=== PATIENT | female | born 1950 | race Caucasian/White ===

== ENCOUNTER 2025-02-02 15:29 | Inpatient (IN) | payer MEDICARE ==
[~2025-02-02] VITALS: Ht 162.6 cm; Wt 85.3 kg
[2025-02-02 15:32] VITALS: BP 103/56; TEMP 98.1
[2025-02-02 20:37] VITALS: BP 109/55; TEMP 98.5; O2SAT 95
[2025-02-02] MEDS ORDERED: REMEDY ESSENTIAL ZINC PASTE 113 GM TOP PRN (20:45)
[2025-02-02] MEDS ORDERED: METO100T14 PO (21:14)
[2025-02-02] MEDS ORDERED: INSU100V7 SQ (21:14)
[2025-02-02] MEDS ORDERED: METF-442 PO (21:14)
[2025-02-02] MEDS: OXYCODONE/APAP 5-325 MG TABLET PO PRN (23:07)
[2025-02-03 04:51] VITALS: BP 126/54; TEMP 98.1; O2SAT 93
[2025-02-03 07:49] VITALS: BP 130/59; TEMP 98.3; O2SAT 95
[2025-02-03] MEDS ORDERED: METO-358 PO (12:07)
[2025-02-03] MEDS ORDERED: AMLO-212 PO (12:08)
[2025-02-03] MEDS ORDERED: OLME1TAB90 PO (12:09)
[2025-02-03] MEDS ORDERED: INSU100V28 SQ (12:11)
[2025-02-03] MEDS ORDERED: ATOR10TA PO (12:12)
[2025-02-03] MEDS ORDERED: DEXTROSE 50% 50 ML DISP.SYRIN IV PRN (15:30)
[2025-02-03 15:52] VITALS: BP 126/74; TEMP 98.4; O2SAT 96
[2025-02-03] MEDS: BLOOD SUGAR DIAGNOSTIC 1 EACH STRIP VI SCH (16:26)
[2025-02-03] MEDS ORDERED: INSULIN REGULAR, HUMAN 1000 UNIT/10 ML VIAL SQ SCH (16:30)
[2025-02-03] MEDS: METFORMIN HCL 500 MG TABLET PO SCH (17:21)
[2025-02-03] MEDS: INSULIN REGULAR, HUMAN 1000 UNIT/10 ML VIAL SQ PRN (17:23)
[2025-02-03] MEDS ORDERED: METFORMIN HCL 850 MG TABLET PO SCH (18:00)
[2025-02-03] MEDS: ATORVASTATIN 10 MG TABLET PO SCH (21:07)
[2025-02-03] MEDS: INSULIN GLARGINE,HUM 300 UNITS/3 ML CARTRIDGE SQ SCH (21:09)
[2025-02-03 23:26] VITALS: BP 129/63; TEMP 97.8; O2SAT 95
[2025-02-04 06:28] VITALS: BP 134/58; TEMP 98.7; O2SAT 92
[2025-02-04 07:57] VITALS: BP 131/66; TEMP 98.4; O2SAT 95
[2025-02-04] MEDS: METOPROLOL SUCCINATE XL 50 MG TAB.SR.24H PO SCH (08:32)
[2025-02-04] MEDS: HCTZ PO SCH (08:33)
[2025-02-04] MEDS: AMLODIPINE 5 MG TABLET PO SCH (08:33)
[2025-02-04] MEDS: OLMESARTAN PO SCH (08:33)
[2025-02-04] MEDS ORDERED: Medication Not On Formulary EA (Olmesartan/Hydrochlorothiazide (Olmesartan-Hctz 40-12.5 PO SCH (09:00)
[2025-02-04 16:14] VITALS: BP 105/51; TEMP 98.2; O2SAT 95
[2025-02-04 20:11] LABS: PLATELET COUNT (AUTO) 225 K/uL (179-408); RED BLOOD CELL COUNT(AUTO) 2.66 MIL/uL (3.63-4.92); RED CELL DISTRIBUTION WIDTH 13.4 % (12.3-17.7); WHITE BLOOD COUNT (AUTO) 7.4 K/uL (3.8-11.8)
[2025-02-04 20:18] LABS: CREATININE 1.0 mg/dL (0.6-1.3); SODIUM SERUM 135 mmol/L (136-145); UREA NITROGEN, BLOOD 34 mg/dL (7-18)
[2025-02-04 21:27] VITALS: BP 111/53; TEMP 98.6; O2SAT 93
[2025-02-05 05:51] VITALS: BP 108/54; TEMP 98.1; O2SAT 95
[2025-02-05 08:00] VITALS: BP 125/63; TEMP 97.8; O2SAT 97
[2025-02-05 16:00] VITALS: BP 116/41; TEMP 97.7; O2SAT 98
[2025-02-05] MEDS ORDERED: PHENYLEPHRINE/SHARK LIVER/CCB 1 EACH SUPP.RECT RC ONE (19:30)
[2025-02-05] MEDS ORDERED: BISACODYL 10 MG SUPP.RECT RC PRN (20:15)
[2025-02-06 07:06] VITALS: BP 120/43; TEMP 97.3; O2SAT 98
[2025-02-06] MEDS: MAGNESIUM HYDROXIDE 30 ML LIQUID UDC PO PRN (12:03)
[2025-02-06] MEDS ORDERED: ONDANSETRON 4 MG/2 ML VIAL IV PRN (14:15)
[2025-02-06] MEDS: ONDANSETRON HCL 4 MG TABLET PO PRN (14:41)
[2025-02-06] MEDS ORDERED: ONDANSETRON 4 MG/2 ML VIAL IM PRN (16:15)
[2025-02-06 17:19] VITALS: BP 125/56; TEMP 97.7; O2SAT 94
[2025-02-06] MEDS: BISACODYL 10 MG SUPP.RECT RC PRN (20:57)
[2025-02-07 07:49] VITALS: BP 120/56; TEMP 98.2; O2SAT 93
[2025-02-07 16:16] VITALS: BP 116/51; TEMP 97.7; O2SAT 94
[2025-02-08 06:00] VITALS: BP 124/48; TEMP 98; O2SAT 95
[2025-02-08 08:23] VITALS: BP 113/59; TEMP 97.8; O2SAT 98
[2025-02-08 16:06] VITALS: BP 107/42; TEMP 97.9; O2SAT 98
[2025-02-09 06:25] VITALS: BP 115/53; TEMP 97.6; O2SAT 98
[2025-02-09 07:48] VITALS: BP 100/50; TEMP 97.7; O2SAT 97
[2025-02-09] MEDS: GLUCERNA SHAKE 237 ML CAN PO SCH (08:46)
[2025-02-09 18:11] VITALS: BP 125/57; TEMP 97.5; O2SAT 95
[2025-02-09 21:30] VITALS: BP 138/61; TEMP 98.2; O2SAT 96
[2025-02-10 06:11] VITALS: BP 114/58; TEMP 97.8; O2SAT 99
[2025-02-10 07:47] VITALS: BP 131/62; TEMP 97.7; O2SAT 97
[2025-02-10 16:00] VITALS: BP 100/47; TEMP 97.6; O2SAT 95
[2025-02-10 21:23] VITALS: BP 113/44; TEMP 97.3; O2SAT 94
[2025-02-11 06:00] VITALS: BP 110/47; TEMP 97.6; O2SAT 95
[2025-02-11 07:33] VITALS: BP 110/52; TEMP 97.8; O2SAT 95
[2025-02-11 08:23] LABS: PLATELET COUNT (AUTO) 341 K/uL (179-408); RED BLOOD CELL COUNT(AUTO) 2.94 MIL/uL (3.63-4.92); RED CELL DISTRIBUTION WIDTH 14.3 % (12.3-17.7); WHITE BLOOD COUNT (AUTO) 5.6 K/uL (3.8-11.8)
[2025-02-11 09:11] LABS: ASPARTATE AMINOTRANSFERASE 11 U/L (15-37); CREATININE 0.6 mg/dL (0.6-1.3); SODIUM SERUM 138 mmol/L (136-145); TOTAL PROTEIN, SERUM 6.2 g/dL (6.4-8.2); UREA NITROGEN, BLOOD 24 mg/dL (7-18)
[2025-02-11 15:54] VITALS: BP 100/53; TEMP 97.6; O2SAT 98
[2025-02-11 20:00] VITALS: BP 125/64; TEMP 98.2; O2SAT 94
[2025-02-12 05:00] VITALS: BP 131/40; TEMP 97.9; O2SAT 94
[2025-02-12 08:00] VITALS: BP 129/59; TEMP 97.7; O2SAT 96
[2025-02-12 17:00] VITALS: BP 112/58; TEMP 97.4; O2SAT 93
[2025-02-12 21:19] VITALS: BP 115/58; TEMP 98.1; O2SAT 96
[2025-02-13 06:54] VITALS: BP 118/51; TEMP 97.9; O2SAT 93
[2025-02-13 07:44] VITALS: BP 120/51; TEMP 97.6; O2SAT 99
[2025-02-13 16:00] VITALS: BP 108/48; TEMP 97.6; O2SAT 98
[2025-02-13 20:00] VITALS: BP 136/53; TEMP 98.2; O2SAT 93
[2025-02-14 05:00] VITALS: BP 127/59; TEMP 97.7; O2SAT 95
[2025-02-14 08:00] VITALS: BP 113/41; TEMP 97.3; O2SAT 95
[2025-02-14 16:36] VITALS: BP 121/57; TEMP 97.9; O2SAT 95
[2025-02-14 22:40] VITALS: BP 127/54; TEMP 98.4; O2SAT 95
[2025-02-15 07:23] VITALS: BP 125/56; TEMP 97.8; O2SAT 95
[2025-02-15 07:35] VITALS: BP 123/62; TEMP 97.7; O2SAT 98
[2025-02-15 16:00] VITALS: BP 110/66; TEMP 97.4; O2SAT 98
[2025-02-15 20:00] VITALS: BP 124/63; TEMP 97.8; O2SAT 97
[2025-02-16 05:25] VITALS: BP 134/63; TEMP 98.4; O2SAT 96
[2025-02-16 07:29] VITALS: BP 120/60; TEMP 97.2; O2SAT 99
[2025-02-16 16:00] VITALS: BP 113/46; TEMP 97.3; O2SAT 99
[2025-02-16 21:16] VITALS: BP 116/48; TEMP 97.5; O2SAT 96
[2025-02-17 08:00] VITALS: BP 133/55; TEMP 98.1; O2SAT 98
[2025-02-17] MEDS: FLEET ENEMA 133 ML BOTTLE RC ONE (09:47)
[2025-02-17] MEDS ORDERED: DICYCLOMINE HCL 20 MG/2 ML AMPUL IM SCH ×2 (12:45)
[2025-02-17] MEDS: DICYCLOMINE HCL 20 MG/2 ML AMPUL IM ONE (13:10)
[2025-02-17] MEDS: SENNOSIDES/DOCUSATE SODIUM TABLET PO SCH (14:13)
[2025-02-17] MEDS ORDERED: SHARK LIVER OIL/PETROLAT OINT 60 GM TUBE RC PRN (14:45)
[2025-02-17 17:00] VITALS: BP 145/62; TEMP 98.7; O2SAT 95
[2025-02-17 23:48] VITALS: BP 107/53; TEMP 98; O2SAT 96
[2025-02-18 07:17] VITALS: BP 132/62; TEMP 98; O2SAT 97
[2025-02-18 08:06] VITALS: BP 137/54; TEMP 97.7; O2SAT 98
[2025-02-18 10:00] LABS: PLATELET COUNT (AUTO) 364 K/uL (179-408); RED BLOOD CELL COUNT(AUTO) 3.38 MIL/uL (3.63-4.92); RED CELL DISTRIBUTION WIDTH 14.3 % (12.3-17.7); WHITE BLOOD COUNT (AUTO) 10.9 K/uL (3.8-11.8)
[2025-02-18] MEDS: PANTOPRAZOLE SODIUM 40 MG VIAL IV SCH (10:18)
[2025-02-18 10:23] LABS: CREATININE 0.6 mg/dL (0.6-1.3); SODIUM SERUM 137 mmol/L (136-145); UREA NITROGEN, BLOOD 21 mg/dL (7-18)
[2025-02-18] MEDS: MIRALAX 17 GM POWD.PACK PO PRN (10:59)
[2025-02-18 16:01] VITALS: BP 109/57; TEMP 98.7; O2SAT 96
[2025-02-18 20:00] VITALS: BP 136/63; TEMP 98.9; O2SAT 97
[2025-02-19 05:00] VITALS: BP 110/41; TEMP 97.9; O2SAT 96
[2025-02-19 08:00] VITALS: BP 111/48; TEMP 97.9; O2SAT 95
[2025-02-19] MEDS: BENZOCAINE/MENTH/CETYLPYRD LOZENGE MM PRN (08:28)
[2025-02-19 09:00] VITALS: BP 114/40
== END 2025-02-19 14:28 | disposition home health service (06) | DRG 560 ==
PROVIDERS: ADMIT Physical Medicine & Rehabilitation Pain Medicine; ATTEND Physical Medicine & Rehabilitation Pain Medicine
DX: S72.142D Displaced intertrochanteric fracture of left femur, subsequent encounter for closed fracture with routine healing (principal); D68.59 Other primary thrombophilia; E11.9 Type 2 diabetes mellitus without complications; M16.12 Unilateral primary osteoarthritis, left hip; M17.12 Unilateral primary osteoarthritis, left knee; W18.30XD Fall on same level, unspecified, subsequent encounter; I10 Essential (primary) hypertension; E78.5 Hyperlipidemia, unspecified; E66.9 Obesity, unspecified; Z68.32 Body mass index [BMI] 32.0-32.9, adult
CPT/HCPCS: 36415; 73502; 83735; 84100; 84443; 85025; 97535-GO-CO; A9150; J0500; J1815; J2405; J2470; Q0162